=== PATIENT | female | born 1990 | race Caucasian/White ===

== ENCOUNTER 2016-07-27 18:50 | Emergency (ER) | payer BC ==
--- NOTE | 2016-07-27 20:09 | ER Document Report ---
ED Medical Screen (RME) - General Stated Complaint: FALL/RIGHT LEG, TOE, ANKLE PAIN Time seen by provider: 20:06 Mode of Arrival: Wheelchair Information source: Patient Notes: 25-year-old female presents to ED for right leg, ankle, and toe pain after she fell last night just before bed. States she slipped something on her floor at home. She states she has young children and they leave things laying on her floor. She states she took 800 ibuprofen and Flexeril last night. She states that the ibuprofen did help her last night and she did not take anything today. Mother is breast-feeding a [id number] child has not had a period since this child was born. I have greeted and performed a rapid initial assessment of this patient. A comprehensive ED assessment and evaluation of the patient, analysis of test results and completion of medical decision making process will be conducted by an additional ED providers. TRAVEL OUTSIDE OF THE [place] IN LAST 30 DAYS: No - Related Data Allergies/Adverse Reactions: shellfish derived [Shellfish Derived] Allergy (Intermediate, Verified 03/05/15 16:51) Hives scallops Allergy (Severe, Uncoded 03/05/15 16:51) Hives Past Medical History - Past Medical History Cardiac Medical History: Reports: Hx Hypertension - c Denies: Hx Coronary Artery Disease, Hx Heart Attack Pulmonary Medical History: Reports: Hx Asthma - as child Denies: Hx Bronchitis, Hx COPD, Hx Pneumonia Neurological Medical History: Denies: Hx Cerebrovascular Accident, Hx Seizures Musculoskeltal Medical History: Denies Hx Arthritis - Immunizations Hx Diphtheria, Pertussis, Tetanus Vaccination: Yes - 2010 Physical Exam - Vital signs Vitals: Temp Pulse Resp BP Pulse Ox 97.7 F 89 16 130/76 H 99 07/27/16 20:02 07/27/16 20:02 07/27/16 20:02 07/27/16 20:02 07/27/16 20:02 Course - Vital Signs Vital signs: Temp Pulse Resp BP Pulse Ox 97.7 F 89 16 130/76 H 99 07/27/16 20:02 07/27/16 20:02 07/27/16 20:02 07/27/16 20:02 07/27/16 20:02
[2016-07-27] MEDS ORDERED: IBUPROFEN 800 MG TABLET PO ONE (20:10)
[2016-07-27 22:15] VITALS: BP 125/94
--- NOTE | 2016-07-27 22:31 | ER Document Report ---
ED General - General Chief Complaint: 4 Stated Complaint: FALL/RIGHT LEG, TOE, ANKLE PAIN Mode of Arrival: Wheelchair Information source: Patient Notes: Patient's 25-year-old female who presents status post fall after she tripped on her child's toy last night. She denies hitting her head or loss of consciousness. She states she fell on her right leg with a tucked underneath her. She states she has taken Motrin and Flexeril that she had a home and did feel relief after the Motrin but she did not take any today and the pain worsened throughout the day. Pain is worse with ambulation and flexion/ extension of the knee and toes. She denies any swelling, bruising, numbness, tingling. TRAVEL OUTSIDE OF THE [place] IN LAST 30 DAYS: No - Related Data Allergies/Adverse Reactions: shellfish derived [Shellfish Derived] Allergy (Intermediate, Verified 03/05/15 16:51) Hives scallops Allergy (Severe, Uncoded 03/05/15 16:51) Hives Past Medical History - General Information source: Patient - Social History Smoking Status: Never Smoker Chew tobacco use (# tins/day): No Frequency of alcohol use: None Drug Abuse: None Family History: Reviewed & Not Pertinent Patient has suicidal ideation: No Patient has homicidal ideation: No - Past Medical History Cardiac Medical History: Reports: Hx Hypertension - c Denies: Hx Coronary Artery Disease, Hx Heart Attack Pulmonary Medical History: Reports: Hx Asthma - as child Denies: Hx Bronchitis, Hx COPD, Hx Pneumonia Neurological Medical History: Denies: Hx Cerebrovascular Accident, Hx Seizures Renal/ Medical History: Denies: Hx Peritoneal Dialysis Musculoskeltal Medical History: Denies Hx Arthritis - Immunizations Hx Diphtheria, Pertussis, Tetanus Vaccination: Yes - 2010 Review of Systems - Review of Systems Constitutional: No symptoms reported EENT: No symptoms reported Cardiovascular: No symptoms reported Respiratory: No symptoms reported Gastrointestinal: No symptoms reported Genitourinary: No symptoms reported Female Genitourinary: No symptoms reported Musculoskeletal: See HPI Skin: No symptoms reported Hematologic/Lymphatic: No symptoms reported Neurological/Psychological: No symptoms reported Physical Exam - Vital signs Vitals: Temp Pulse Resp BP Pulse Ox 97.7 F 89 16 130/76 H 99 07/27/16 20:02 07/27/16 20:02 07/27/16 20:02 07/27/16 20:02 07/27/16 20:02 Interpretation: Hypertensive - Notes Notes: PHYSICAL EXAM: CONSTITUTIONAL: Alert and oriented, well-appearing and in no acute distress. HENT: Normocephalic, atraumatic. Moist mucous membranes. EYES: Pupils equal round and reactive to light, EOM intact. Sclera anicteric, conjunctiva are normal. No entrapment. NECK: supple without lymphadenopathy. No midline tenderness or paraspinous muscle spasms. No step-offs or deformities. ROM intact. HEART: Regular rate and rhythm without murmurs. LUNGS: CTAB and equal. No wheezes, rales or rhonchi. BACK: nontender, no paraspinous spasm, 5+/5 strengths, DTRs 2+, SLR -. EXTREMITIES: Right leg: nontender to palpation of thigh, all aspects of knee, tib/fib and foot. Mild tenderness to 2nd toe. AROM and PROM intact. No ecchymosis, edema, effusion, erythema or deformity. Distal pulses palpable. All other extremities: Normal range of motion, no pitting edema. No cyanosis. Cap Refill <3 seconds. NEURO: Cranial nerves grossly intact. Normal sensory/motor exams. SKIN: Warm and dry. Normal turgor. No rashes or lesions noted. Course - Re-evaluation Re-evalutation: 07/27/16 22:28 Patient seen and examined. Exam of right leg reveals no tenderness on palpation , no ecchymosis, effusion, edema or deformities. No evidence of cellulitis, compartment syndrome. Low suspicion for DVT considering mechanism of injury and no unilateral edema, palpable cords, or calf tenderness. Xrays of right knee, ankle and foot negative for acute abnormalities. Will give muscle relaxer and pain medication - patient requesting SHAHID wrap and crutches. Advised to weight- bear as tolerated. At this time, will discharge with return precautions and follow-up recommendations. Verbal discharge instructions given at the bedside and opportunity for questions given. Medication warnings reviewed. Patient is in agreement with this plan and has verbalized understanding of return precautions and the need for primary care follow-up in the next 24-72 hours. - Vital Signs Vital signs: Temp Pulse Resp BP Pulse Ox 97.7 F 89 18 125/94 H 98 07/27/16 20:02 07/27/16 22:14 07/27/16 22:14 07/27/16 22:14 07/27/16 22:14 - Diagnostic Test Radiology reviewed: Image reviewed, Reports reviewed Discharge - Discharge Clinical Impression: Fall, accidental Qualifiers: Encounter type: initial encounter Qualified Code(s): W19.XXXA - Unspecified fall, initial encounter Contusion of right knee Qualifiers: Encounter type: initial encounter Qualified Code(s): S80.01XA - Contusion of right knee, initial encounter Contusion of right ankle Qualifiers: Encounter type: initial encounter Qualified Code(s): S90.01XA - Contusion of right ankle, initial encounter Contusion of right great toe without damage to nail Qualifiers: Encounter type: initial encounter Qualified Code(s): S90.111A - Contusion of right great toe without damage to nail, initial encounter Condition: Stable Disposition: HOME, SELF-CARE Additional Instructions: You have suffered from several contusions (knee, ankle, foot) which is just a deep bruise that may take some time to heal that occurred during your fall. Your x-rays did not show any broken bones or dislocations. You can continue with the ibuprofen or Motrin that you have at home. You have been given a prescription for Robaxin which is a muscle relaxer and has the same breast- feeding considerations as Flexeril. You may be sore for several days following your fall, this is typical for contusions or joint pain. Return if worse symptoms or pain worsens. Follow-up with your primary care doctor in 1-2 days call tomorrow for an appointment. Prescriptions: Methocarbamol [Robaxin 500 mg Tablet] 500 mg PO TID #20 tablet Forms: Elevated Blood Pressure, Return to Work
[2016-07-27] MEDS ORDERED: NAPROXEN 375 MG TABLET PO ONE (22:45)
[2016-07-27] MEDS ORDERED: NAPROXEN 250 MG TABLET PO ONE (22:49)
== END 2016-07-27 22:55 | disposition home or self-care (01) ==
LOC: ER 18:50
DX: S80.01XA Contusion of right knee, initial encounter (principal); S90.01XA Contusion of right ankle, initial encounter; S90.111A Contusion of right great toe without damage to nail, initial encounter; M79.604 Pain in right leg; M25.572 Pain in left ankle and joints of left foot; W19.XXXA Unspecified fall, initial encounter
CPT/HCPCS: 99284